=== PATIENT | male | born 1990 | race American Indian/Alaskan Native ===

== ENCOUNTER 2017-06-04 12:34 | Emergency (ER) | payer SELFPAY ==
[2017-06-04 12:53] VITALS: BP 117/85
[2017-06-04] MEDS ORDERED: MOTRIN PO ONE (15:00)
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
== END 2017-06-04 15:59 | disposition home or self-care (01) ==
LOC: EDBD 12:34 → ED 12:34
DX: M79.1 Myalgia (principal); M54.2 Cervicalgia; F12.10 Cannabis abuse, uncomplicated; V89.2XXA Person injured in unspecified motor-vehicle accident, traffic, initial encounter; Y93.89 Activity, other specified; Y92.89 Other specified places as the place of occurrence of the external cause; Y99.8 Other external cause status
CPT/HCPCS: 72040; 99283